=== PATIENT | male | born 1990 | race Caucasian/White ===

== ENCOUNTER 2022-08-16 18:14 | Emergency (ER) | payer BC, SELFPAY ==
--- NOTE | 2022-08-16 18:19 | ED.URI ---
HPI - URI/Sore Throat General Chief Complaint: Upper Respiratory Infection Stated Complaint: Chills, Fever Time Seen by Provider: 08/16/22 18:19 Source: patient Mode of arrival: ambulatory Limitations: no limitations History of Present Illness HPI Narrative: Jacky is a 32-year-old male patient presenting to the clinic today with complaints of chills, fevers, cough, headache, body aches x2 days. He reports that his daughter was tested positive for influenza a on Sunday. He reports he is needing a test for COVID as well for work to return. MD elicited complaint: fever Related Data Allergies Allergy/AdvReac Type Severity Reaction Status Date / Time No Known Allergies Allergy Mild Verified 08/16/22 18:32 Review of Systems Review of Systems: Pertinent positives per HPI. Patient denies any rash, headache, visual changes, dizziness, shortness of breath, chest pain, palpitations, nausea, vomiting, diarrhea, constipation, abdominal pain, or any urinary issues. PMFSH Family History Family History Father Hypertension Family history of diabetes mellitus in first degree relative Social History Social History Smoking status: Never smoker Second hand tobacco smoke exposure: No Alcohol intake: current Alcohol use details: social drinker Substance use: never Substance use type: does not use Gender identity (if verbalized by the patient): Male Comments At the time of my signature, I reviewed and agree with the nursing past medical, surgical, social, and family history. There is no relevant family history pertinent to the patient complaint. Exam Narrative: General: Well-developed, well nourished, in no apparent distress Head: Normocephalic, atraumatic Eyes: Pupils equally round and reactive to light bilaterally, EOM intact, sclera and conjunctive clear, no discharge, lids normal Ears: TMs intact , dull, and red, ear canals clear, no drainage, grossly hearing normal. Nose: Nares patent, clear nasal discharge, no inflammation, no sinus tenderness. Mouth: Oral pharynx without lesions or masses, good dentition, MMM. postnasal drip Neck: Supple, trachea midline, no enlargement of anterior or posterior cervical nodes, no thyroid masses or goiter palpable. Cardio: Regular rate and rhythm, s1 and s2 normal, no murmur appreciated. Resp: Clear to auscultation bilaterally, no rhonchi, rales, wheezing or rubs Course Course Emergency Course: Portions of this record may have been created with voice recognition software. Level of Care: Express Care Visit Vital Signs Vital signs: Vital Signs Temperature 38.3 C H 08/16/22 18:28 Pulse Rate 95 08/16/22 18:28 Respiratory Rate 16 08/16/22 18:28 Blood Pressure 155/93 H 08/16/22 18:28 Pulse Oximetry 99 08/16/22 18:28 Oxygen Delivery Room Air 08/16/22 18:28 Temperature 38.3 C H 08/16/22 18:28 Pulse Rate 95 08/16/22 18:28 Respiratory Rate 16 08/16/22 18:28 Blood Pressure 155/93 H 08/16/22 18:28 Pulse Oximetry 99 08/16/22 18:28 Oxygen Delivery Room Air 08/16/22 18:28 Vital signs reviewed MDM - URI/Sore Throat MDM Narrative Medical decision making narrative: at the time of visit patient is resting comfortably on the exam table. COVID and influenza testing was completed in the clinic today. COVID testing was negative but influenza test was positive for influenza A. I will send in a prescription for some Tamiflu and supportive measures were discussed with the patient he voiced understanding of discharge instructions and agrees to treatment plan. Differential Diagnosis Differential diagnosis: Likely upper respiratory infection, otitis media, sinusitis, viral infection, bronchitis, influenza, pharyngitis and other ( COVID) Lab Data Labs: Lab Results 08/16/22 Range/Units 18:49 POC SARS CoV-2 Ag Negativ
[2022-08-16 18:28] VITALS: BP 155/93; PULSE 95; RESP 16; TEMP 38.3; O2SAT 99
== END 2022-08-16 19:19 | disposition home or self-care (01) ==
PROVIDERS: Emergency Provider Nurse Practitioner Family; PCP Family Medicine
DX: J10.1 Influenza due to other identified influenza virus with other respiratory manifestations (principal); Z20.822 Contact with and (suspected) exposure to COVID-19
CPT/HCPCS: 87426; 87804; 99213; C9803; G0463

== ENCOUNTER 2025-01-01 15:55 | Emergency (ER) | payer BC, SELFPAY ==
--- NOTE | 2025-01-01 16:00 | ED.URI ---
HPI - URI/Sore Throat General Chief Complaint: Upper Respiratory Infection Stated Complaint: Sinus/Bodyaches Time Seen by Provider: 01/01/25 16:00 Source: patient Mode of arrival: ambulatory Limitations: no limitations History of Present Illness HPI Narrative: Jacky is a 34-year-old male patient presenting to the clinic today with complaints of sinus congestion, cough, sore throat, feeling feverish, and body aches x 1 days. Feels as though he is wheezing. Denies any chest pain or shortness of breath currently. MD elicited complaint: fever, cough, sore throat, rhinorrhea and nasal congestion Related Data Allergies Allergy/AdvReac Type Severity Reaction Status Date / Time No Known Allergies Allergy Mild Verified 01/01/25 15:59 Review of Systems Review of Systems: Pertinent positives per HPI. Patient denies any rash, headache, visual changes, dizziness, shortness of breath, chest pain, palpitations, nausea, vomiting, diarrhea, constipation, abdominal pain, or any urinary issues. [facility] Surgical History Surgical History S/P vasectomy Family History Family History Father Hypertension Family history of diabetes mellitus in first degree relative Social History Social History Smoking status: Never smoker Second hand tobacco smoke exposure: No Alcohol intake: current Alcohol use details: social drinker Substance use: never Substance use type: does not use Living arrangements: with family Occupation/Education: occupation Gender identity (if verbalized by the patient): Male Comments At the time of my signature, I reviewed and agree with the nursing past medical, surgical, social, and family history. There is no relevant family history pertinent to the patient complaint. Exam Narrative: General: Well-developed, obese, in no apparent distress Head: Normocephalic, atraumatic Eyes: Pupils equally round and reactive to light bilaterally, EOM intact, sclera and conjunctive clear, no discharge, lids normal Ears: TMs intact and clear, ear canals clear, no drainage, grossly hearing normal. Nose: Nares patent, clear nasal discharge, no inflammation, no sinus tenderness. Mouth: Oral pharynx without lesions or masses, good dentition, MMM. Postnasal drip Neck: Supple, trachea midline, no enlargement of anterior or posterior cervical nodes, no thyroid masses or goiter palpable. Cardio: Regular rate and rhythm, s1 and s2 normal, no murmur appreciated. Resp: Clear to auscultation bilaterally, no rhonchi, rales, wheezing or rubs Course Course Emergency Course: Portions of this record may have been created with voice recognition software. Level of Care: Express Care Visit Vital Signs Vital signs: Vital signs reviewed MDM - URI/Sore Throat MDM Narrative Medical decision making narrative: At the time of visit patient is resting comfortably on the exam table. Patient appears to be nontoxic. Labs: Influenza A positive in the clinic today. Covid testing is negative. Plan: Patient has influenza A. Prescription for Tamiflu was sent to the pharmacy as well as an albuterol inhaler. Supportive measures were discussed with the patient and they voiced understanding discharge instructions and agrees to treatment plan. Return precautions reviewed Differential Diagnosis Differential diagnosis: Likely upper respiratory infection, otitis media, sinusitis, viral infection, bronchitis, influenza, pharyngitis and other (COVID) Discharge Plan Discharge Clinical Impression: Influenza A Patient Disposition: Home, Self-Care Condition: Stable Instructions: Antibiotic Form, Influenza (ED) Additional Instructions: Take prescription medications only as prescribed-tamiflu and albuterol inhaler Increase fluids and stay well hydrated Tylenol/motrin for pain/fever Flonase and OTC antihistamines as directed Vicks vapor rub to open sinuses Sinus rinses for congestion Cepacol spray, cough drops, throat lozenges, warm tea with honey/lemon, gargle salt water to soothe throat BRAT diet for diarrhea Clear liquids x 24 hours then advance as tolerated for nausea/vomiting Go to the ED if you develop a worsening in your condition- high fever not controlled by Tylenol or Motrin, dehydration, weakness, lethargy, shortness of breath, or chest pain. Follow up with your PCP in 3-5 days if symptoms persist. Patient Language: Setswana Prescriptions: New oseltamivir [Tamiflu] 75 mg capsule 75 mg PO Q12H 5 Days Qty: 10 0RF albuterol sulfate 90 mcg/actuation HFA aerosol inhaler 2 puff inhalation Q4-6H PRN (Reason: shortness of breath or wheezing) 30 Days Qty: 8.5 0RF No Action amlodipine 10 mg tablet 10 mg PO DAILY Qty: 90 1RF lisinopril 20 mg tablet See Rx Instructions .ROUTE .COMPLEX Qty: 90 2RF Dose Instruction: TAKE 1 TABLET BY MOUTH EVERY DAY Rx Instructions: TAKE 1 TABLET BY MOUTH EVERY DAY tadalafil 10 mg tablet 10 mg PO DAILY Qty: 90 2RF Follow-up/Referrals: Peter Soto MD [Primary Care Provider] - Stand Alone Forms: Work/School Release IP Time of Disposition: 16:16 Quality NIHSS Nursing Documentation ED NIHSS nursing documentation: reviewed/agree
[2025-01-01 16:10] VITALS: BP 153/82; PULSE 110; RESP 18; TEMP 36.9; O2SAT 96
[2025-01-01 16:26] LABS: EDCOVIDSCREEN Negative (Negative); EDINFLUASCREEN Positive (Negative); EDINFLUBSCREEN Negative (Negative)
[2025-01-01 16:26] LABS: EDCOVIDSCREEN Negative (Negative); EDINFLUASCREEN Positive (Negative); EDINFLUBSCREEN Negative (Negative)
== END 2025-01-01 16:23 | disposition home or self-care (01) ==
PROVIDERS: Emergency Provider Nurse Practitioner Family; PCP Family Medicine
DX: J10.1 Influenza due to other identified influenza virus with other respiratory manifestations (principal); Z20.822 Contact with and (suspected) exposure to COVID-19
CPT/HCPCS: 87426; 87804; 99213; G0463

== ENCOUNTER 2025-09-28 09:38 | Outpatient (CLI) | payer BC, SELFPAY ==
--- NOTE | 2025-09-28 09:52 | EST_ITS ---
Patient Info Name: Jacky Gomez Age: 35 years : 1990 Gender: Male Ht: 72 in Wt: 280 lbs BSA: 2.59 m2 HR: 58 bpm BP: 141 / 81 mmHg Exam Date: 09/28/2025 9:52 AM Patient Status: O Admit Date: 09/28/2025 Exam Type: CA stress test treadmill A treadmill exercise stress test was performed. Staff Referring Physician: Alexa Claudio Attending Provider: Alexa Claudio Exercise Technologist: Eliana Mendes Exercise Physician: Chavez Persaud DO Summary 1. 1. Negative Parmjit exercise stress test for ischemic ST changes by ECG criteria. 2. 2. Good functional capacity, achieving 11.8 METs of workload. 3. 3. Baseline hypertension. 4. 4. Appropriate HR response to exercise. 5. 5. Appropriate HR recovery at 1 minute post exercise. 6. 6. No imaging with stress testing. 7. 7. Patient informed of the above results. Protocol: Parmjit Stress ECG Details Stage: REST Duration (min): 1 min : 27 sec Speed (mph): 0.0 Grade (%): 0 HR (bpm): 57 SBP (mmHg): 141 DBP (mmHg): 81 METS: --- Stage: REST Duration (min): 5 min : 23 sec Speed (mph): 0.0 Grade (%): 0 HR (bpm): 80 SBP (mmHg): 141 DBP (mmHg): 81 METS: --- Stage: STAGE 1 Duration (min): 1 min : 0 sec Speed (mph): 1.7 Grade (%): 10 HR (bpm): 91 SBP (mmHg): 141 DBP (mmHg): 81 METS: --- Stage: STAGE 1 Duration (min): 2 min : 0 sec Speed (mph): 1.7 Grade (%): 10 HR (bpm): 99 SBP (mmHg): 141 DBP (mmHg): 81 METS: --- Stage: STAGE 1 Duration (min): 3 min : 0 sec Speed (mph): 1.7 Grade (%): 10 HR (bpm): 103 SBP (mmHg): 164 DBP (mmHg): 63 METS: --- Stage: STAGE 2 Duration (min): 1 min : 0 sec Speed (mph): 2.5 Grade (%): 12 HR (bpm): 109 SBP (mmHg): 164 DBP (mmHg): 63 METS: --- Stage: STAGE 2 Duration (min): 2 min : 0 sec Speed (mph): 2.5 Grade (%): 12 HR (bpm): 112 SBP (mmHg): 175 DBP (mmHg): 62 METS: --- Stage: STAGE 2 Duration (min): 3 min : 0 sec Speed (mph): 2.5 Grade (%): 12 HR (bpm): 116 SBP (mmHg): 175 DBP (mmHg): 62 METS: --- Stage: STAGE 3 Duration (min): 1 min : 0 sec Speed (mph): 3.4 Grade (%): 14 HR (bpm): 124 SBP (mmHg): 178 DBP (mmHg): 91 METS: --- Stage: STAGE 3 Duration (min): 2 min : 0 sec Speed (mph): 3.4 Grade (%): 14 HR (bpm): 126 SBP (mmHg): 178 DBP (mmHg): 91 METS: --- Stage: STAGE 3 Duration (min): 3 min : 0 sec Speed (mph): 3.4 Grade (%): 14 HR (bpm): 130 SBP (mmHg): 195 DBP (mmHg): 88 METS: --- Stage: STAGE 4 Duration (min): 0 min : 52 sec Speed (mph): 4.2 Grade (%): 16 HR (bpm): 155 SBP (mmHg): 195 DBP (mmHg): 88 METS: --- Stage: RECOVERY Duration (min): 0 min : 7 sec Speed (mph): 1.5 Grade (%): 0 HR (bpm): 157 SBP (mmHg): 195 DBP (mmHg): 88 METS: --- Stage: RECOVERY Duration (min): 1 min : 7 sec Speed (mph): 0.0 Grade (%): 0 HR (bpm): 121 SBP (mmHg): 195 DBP (mmHg): 88 METS: --- Stage: RECOVERY Duration (min): 2 min : 7 sec Speed (mph): 0.0 Grade (%): 0 HR (bpm): 105 SBP (mmHg): 195 DBP (mmHg): 88 METS: --- Stage: RECOVERY Duration (min): 3 min : 7 sec Speed (mph): 0.0 Grade (%): 0 HR (bpm): 85 SBP (mmHg): 188 DBP (mmHg): 74 METS: --- Stage: RECOVERY Duration (min): 3 min : 29 sec Speed (mph): 0.0 Grade (%): 0 HR (bpm): 90 SBP (mmHg): 188 DBP (mmHg): 74 METS: --- Rest HR: 80 bpm Peak HR: 157 bpm Rest Sys BP: 141 mmHg Peak Sys BP: 195 mmHg Max Pred HR: 186 bpm % Max Pred HR: 84 % Target HR: 158 bpm Max RPP: 30,615 bpm*mmHg Roth Score: 3 Termination Reason: Reached target heart rate or workload Cardiac Symptoms: Shortness of breath, Leg pain Max ST Seg Deviation: 1.30 mm Total Time: 9 min : 52 sec Rest [place] BP: 81 mmHg Peak [place] BP: 88 mmHg Angina Score: None Total METS: 11.8 Resting ECG Sinus rhythm. Stress ECG No ST changes. Arrhythmias None. Report Signatures
--- NOTE | 2025-09-28 09:54 | ECG_ITS ---
Test Date: 2025-09-28 10:44:50 Measurements Intervals [place] Rate: 76 P: 35 [place]: 139 QRS: 34 QRSD: 94 T: 33 QT: 344 QTc: 388 Interpretive Statements SINUS RHYTHM WITH SINUS ARRHYTHMIA BASELINE ARTIFACT- III, AVR, AVL, AVF, V1-V6 NORMAL ECG No previous ECG available for comparison Electronically Signed On 09-28-2025 11:36:12 AUDIOVISUAL TECHNICIAN by Chavez Persaud D.O.
== END 2025-09-28 09:39 | disposition home or self-care (01) ==
PROVIDERS: PCP Family Medicine; Visit Provider Student in an Organized Health Care Education/Training Program
DX: R07.9 Chest pain, unspecified (principal); I10 Essential (primary) hypertension
CPT/HCPCS: 93005; 93017